=== PATIENT | male | born 1990 | race African-American/Black ===

== ENCOUNTER 2017-04-21 13:24 | Emergency (ER) | payer SELFPAY ==
[~2017-04-21] VITALS: Ht 188 cm; Wt 97.0 kg
[2017-04-21 13:40] VITALS: BP 139/76; PULSE 71; RESP 16; TEMP 97.9; O2SAT 97
--- NOTE | 2017-04-21 14:38 | RADRPT ---
EXAM DATE/TIME: 04/21/2017 14:22 [place] COMPARISON: No previous studies available for comparison. INDICATIONS : Punched window last night , multiple lacerations right hand, limited ROM MEDICAL HISTORY : None. SURGICAL HISTORY : None. ENCOUNTER: Initial ACUITY: 1 day PAIN SCORE: 10/10 LOCATION: Right hand TECH NOTE: DESTINY FONTAINE MR#[id number] :88 Exam date/desc:April 21, 2017HAND RIGHT COMPLETE ([id number] ) FINDINGS: Soft tissues near the fifth metacarpal phalangeal joint are lacerated. No radiopaque foreign body. No fracture or subluxation. CONCLUSION: Soft tissue injury without fracture or distinct foreign body. Greg Alonso MD on April 21, 2017 at 14:35 Board Certified Radiologist. This report was verified electronically.
[2017-04-21] MEDS ORDERED: CEPH-460 PO (15:24)
--- NOTE | 2017-04-21 15:26 | PD ---
HPI Chief Complaint: Laceration/Skin Injury Time Seen by Provider: 13:53 Travel History International Travel<30 days: No Contact w/Intl Traveler<30days: No Traveled to known affect area: No PFSH Past Medical History Cancer: No Diabetes: No Diminished Hearing: No Hepatitis: No Hiatal Hernia: No Immunizations Current: Yes Thyroid Disease: No Past Surgical History Pacemaker: No Other Surgery: Yes (thumb surgery) Social History Alcohol Use: Yes Tobacco Use: Yes Substance Use: No Allergies-Medications (Allergen,Severity, Reaction): Coded Allergies: No Known Allergies (Verified Adverse Reaction, Unknown, 04/21/17) Reported Meds & Prescriptions Reported Meds & Active Scripts Active No Active Prescriptions or Reported Medications Data Data Last Documented VS Vital Signs Date Time Temp Pulse Resp B/P (MAP) Pulse Ox O2 Delivery O2 Flow Rate FiO2 04/21/17 13:40 97.9 71 16 139/76 (97) 97 Orders Orders Hand, Complete ([id number]) (04/21/17 ) Mandatory Outpatient Referral (04/21/17 14:03) MDM Medical Decision Making Medical Screen Exam Complete: Yes Emergency Medical Condition: Yes Differential Diagnosis Laceration, tendon laceration, retained foreign body Narrative Course 27-year-old male here for evaluation of 2 lacerations to the dorsal aspect of the right hand. Patient punched a glass window at 1 AM this morning causing a laceration to the hand. He is reporting inability to extend his right third digit. There is a visible extensor tendon laceration. The case was discussed with Dr. Chavira sole conditioner hand surgeon she requests that primary closure be done in the emergency department and will follow up with patient in the office this week. Patient will be put on oral antibiotics. Hand will be splinted to immobilize the area. Wound care discussed since because. Order was placed for mandatory referral for follow-up with hand surgeon. Procedures Procedure Narrative LACERATION LOCATION: Right hand dorsal aspect LENGTH: #1 1.5 cm, #2 1.5 cm NUMBER OF STITCHES/KALEIGH: 6 total REPAIR: The area of the laceration was prepped with Betadine and sterilely draped. The laceration was infiltrated with 1% lidocaine. The wound was copiously irrigated and explored without evidence of foreign body or neurovascular injury. The wound was closed using 5-0 Ethilon. This was a single layer repair. A sterile dressing was applied. The patient was advised to keep the dressing clean and dry. Patient tolerated the procedure well. Diagnosis Primary Impression: Laceration of right hand involving tendon Qualified Codes: S61.411A - Laceration without foreign body of right hand, initial encounter; S66.921A - Laceration of unspecified muscle, fascia and tendon at wrist and hand level, right hand, initial encounter Referrals: Liliana Chavira MD Additional Instructions: Do not submerge the wound in water. Watch the area daily with soap and water and apply a clean dry dressing daily. Were finger splint at all times. The Hospital should be calling you to set up a follow-up appointment with Dr. Chavira the hand surgeon. Take the antibiotics as prescribed. Return to emergency department if he developed new or worsening symptoms Scripts Cephalexin (Keflex) 500 Mg Capsule 500 MG PO Q6H for Infection for 7 Days, #28 CAP 0 Refills Prov: Erinn Lira 04/21/17 Disposition: 01 DISCHARGE HOME Condition: Stable Erinn Lira Apr 21, 2017 15:26
== END 2017-04-21 15:53 | disposition home or self-care (01) ==
LOC: PHEFT 13:24
DX: S61.411A Laceration without foreign body of right hand, initial encounter (principal); W25.XXXA Contact with sharp glass, initial encounter
CPT/HCPCS: 12002; 73130

== ENCOUNTER → 2017-04-27 | Day surgery (SDC) | payer SELFPAY ==
[~2017-04-27] VITALS: Ht 188 cm; Wt 99.3 kg
[~2017-04-27] MED LIST: ACETAMINOPHEN 1000 MG/100 ML 100 ML IV ONE; BACITRACIN TOP OINT 15 GM TUBE ONE; CEPH-460 PO; CHLORHEXIDINE GLUCONATE 2 % 1 PACK (2 CLOTHS) TOPICAL PRN; DEXAMETHASONE SOD PHOS 4 MG/ML VIAL IV ONE; DO NOT ADM ANY ANTICOAGULANT DRUGS PRN; HYDROmorphone HCL PF 2 MG/ML VIAL ONE; INSULIN HUMAN REGULAR 1,000 UNITS/10 ML VIAL SQ PRN; LACTATED RINGER'S 1000 ML INJ 1,000 ML IV ONE; LACTATED RINGER'S 1000 ML IV PRN; LIDOCAINE HCL 1% PF 5 ML AMPULE OTHER ONE; LIDOCAINE HCL 2% 50 ML VIAL ONE; METOPROLOL TARTRATE 25 MG TAB PO PRN; MIDAZOLAM HCL 2 MG/2 ML VIAL IV ONE; NEOMYCIN/POLYMYXIN 1 ML G.U. IRRIGANT ONE; ONDANSETRON HCL 4 MG/2 ML VIAL IV PUSH ONE; POVIDONE IODINE 5% (ANTISEPSIS KIT) 4 APPLICATIONS EACH NARE PRN; PROPOFOL 200 MG/20 ML AMP IV ONE; SODIUM CHLORID 0.9% 500 ML IV PRN; oxyCODONE/ACETAMINOPHEN 5 MG/325 MG TAB ONE; oxyCODONE/ACETAMINOPHEN 5 MG/325 MG TAB PO ONE
[2017-04-27] MEDS: ceFAZolin 2 GM PREMIX 50 ML IV SCH ×2 (07:35→08:18)
[2017-04-27 09:58] VITALS: BP 139/69; PULSE 54; RESP 18; TEMP 97.9; O2SAT 99
--- NOTE | 2017-04-27 13:40 | MP ---
cc: LILIANA CHAVIRA DATE OF SURGERY: 04/27/2017 PREOPERATIVE DIAGNOSIS 1. Open wound, right hand. 2. Extensor tendon laceration, right middle finger. POSTOPERATIVE DIAGNOSIS 1. Open wound, right hand. 2. Extensor tendon laceration, right middle finger. PROCEDURE 1. Irrigation and debridement of open wound including skin, subcutaneous tissue, muscle and bone. 2. Right middle finger extensor tendon repair at the level of the metacarpal phalangeal joint. SURGEON Dr. Liliana Chavira. ANESTHESIA General and local. TOURNIQUET TIME 28 minutes at 200 mmHg. INDICATION FOR PROCEDURE Telly Kerr is a 27-year-old right-hand dominant male who punched through a glass window on 04/21/2017. He was seen in the emergency room where the wound was irrigated and sutured and he was instructed to follow-up in the office. He was seen yesterday on 04/26/2017. He had complete lack of extension of the right middle finger and a sutured lacerations of the dorsum of the hand just proximal to the metacarpal phalangeal joints over the right middle and ring fingers. Treatment options were discussed with the patient including observation versus surgical intervention. He requested surgical intervention. The risks were explained but not limited to wound complications, infection, stiffness, pain, extensor lag, and he elected to proceed. DESCRIPTION OF PROCEDURE The patient was identified in the preoperative holding area and the correct extremity was marked. The patient was taken to the operating room where anesthesia was induced. The right upper extremity was prepped and draped in a normal sterile fashion. The prior sutures were removed. The laceration was extended slightly proximally and distally. The tourniquet was inflated to 200 mmHg for 28 minutes. Three liters of antibiotic saline was irrigated through the wound and the wound was debrided including skin, subcutaneous tissue, muscle and bone using a rongeur. The extensor tendon of the ring finger was inspected and was intact. There was complete laceration of the middle finger extensor tendon just proximal to the metacarpal phalangeal joint. This was repaired using 4-0 FiberWire in both a Ron and horizontal mattress fashion as well as an epitendinous repair using 6-0 nylon. This had good extension of the finger. The wound was again irrigated and closed with Monocryl and nylon. The patient was placed in an extension splint with his wrist and middle finger in extension. I will see him next week in conjunction with Therapy for a custom splint and therapy. He understands the importance of compliance to decrease the chance of a tendon rupture and stiffness. The patient will continue his antibiotics. He will call with any concerns. MD RO Chi/SHANTELLE /9:28 AM /1:23 PM MTDD
== END | disposition home or self-care (01) ==
LOC: HSDC 06:29
PROVIDERS: ATTEND Orthopaedic Surgery
DX: S66.322A Laceration of extensor muscle, fascia and tendon of right middle finger at wrist and hand level, initial encounter (principal); W25.XXXA Contact with sharp glass, initial encounter
CPT/HCPCS: 01810; 26410; J0131; J0690; J1100; J2250; J2405; J3010; J7120; J1170